=== PATIENT | female | born 1995 | race Hispanic/Latino ===

== ENCOUNTER 2017-12-16 23:23 | Emergency (ER) | payer SELFPAY ==
[2017-12-17 00:20] LABS: APPEARANCE,URINE Turbid (CLEAR); BILIRUBIN,URINE Negative (NEGATIVE); COLOR,URINE Yellow (YELLOW); GLUCOSE, URINE (UA) Negative (NEGATIVE); KETONES,URINE Negative (NEGATIVE); LEUKOCYTE ESTERASE ,URINE Large (NEGATIVE); NITRATE,URINE Positive (NEGATIVE); OCCULT BLOOD,URINE Negative (NEGATIVE); PROTEIN,URINE Negative (NEGATIVE)
[2017-12-17 00:24] LABS: HCG,QUAL RESULT NEGATIVE (NEGATIVE)
[2017-12-17 00:32] LABS: BACTERIA,URINE Many /HPF (None Seen); WBC,URINE 26-50 /HPF (0-1)
[2017-12-17 00:33] LABS: AMORPHOUS SEDIMENT,UR Many /LPF (None Seen); MUCUS,URINE Many LPF (None Seen); RENAL EPITHELIAL CELLS,URINE Moderate /LPF (None Seen); SQUAMOUS EPITHELIAL CELL,UR Many /LPF (0-2)
[2017-12-17] MEDS ORDERED: CEFTRIAXONE SODIUM 1 GM ONE (00:50)
[2017-12-17] MEDS ORDERED: LIDOCAINE HCL-MPF 1% 2ML VIAL ONE (00:50)
[2017-12-17] MEDS ORDERED: PHENAZOPYRIDINE HCL 200 MG TABLET ONE (00:51)
== END 2017-12-17 01:52 | disposition home or self-care (01) ==
LOC: EDH 23:23
DX: N30.00 Acute cystitis without hematuria (principal)
CPT/HCPCS: 81001; 81025; 96372; 99284; J0696; J3490

== ENCOUNTER 2018-01-31 17:46 | Emergency (ER) | payer OTHER | END 2018-01-31 20:25 | disposition home or self-care (01) | LOC: EDH 17:46 | DX: M54.2 Cervicalgia (principal); V49.59XA Passenger injured in collision with other motor vehicles in traffic accident, initial encounter; Y93.89 Activity, other specified; Y92.89 Other specified places as the place of occurrence of the external cause; Y99.8 Other external cause status | CPT/HCPCS: 72040 ==

== ENCOUNTER 2018-03-19 03:32 | Emergency (ER) | payer SELFPAY | END 2018-03-19 04:04 | disposition home or self-care (01) | LOC: EDH 03:32 | DX: J02.9 Acute pharyngitis, unspecified (principal); H92.02 Otalgia, left ear ==

== ENCOUNTER 2018-07-24 15:35 | Emergency (ER) | payer OTHER ==
[2018-07-24 16:30] LABS: APPEARANCE,URINE Cloudy (CLEAR); BILIRUBIN,URINE Negative (NEGATIVE); COLOR,URINE Yellow (YELLOW); GLUCOSE, URINE (UA) Negative (NEGATIVE); HCG,QUAL RESULT NEGATIVE (NEGATIVE); KETONES,URINE Negative (NEGATIVE); LEUKOCYTE ESTERASE ,URINE Small (NEGATIVE); NITRATE,URINE Negative (NEGATIVE); OCCULT BLOOD,URINE Negative (NEGATIVE); PH,URINE 5.5 (5.0-8.0); PROTEIN,URINE Negative (NEGATIVE); UROBILINOGEN,URINE 0.2 mg/dL (0.2-1.0)
[2018-07-24 16:44] LABS: BACTERIA,URINE Few /HPF (None Seen); MUCUS,URINE Few LPF (None Seen); RBC,URINE None Seen /HPF (0-1); TRANSITIONAL EPI CELLS,URINE Few /HPF (None Seen)
== END 2018-07-24 17:12 | disposition home or self-care (01) ==
LOC: EDH 15:35
DX: N39.0 Urinary tract infection, site not specified (principal)
CPT/HCPCS: 81001; 81025

== ENCOUNTER 2018-10-06 01:48 | Emergency (ER) | payer OTHER ==
[2018-10-06] MEDS ORDERED: ONDANSETRON ODT 4 MG TAB ONE (02:21)
== END 2018-10-06 03:01 | disposition home or self-care (01) ==
LOC: EDH 01:48
DX: J06.9 Acute upper respiratory infection, unspecified (principal); B97.89 Other viral agents as the cause of diseases classified elsewhere; H92.09 Otalgia, unspecified ear; F41.9 Anxiety disorder, unspecified
CPT/HCPCS: 81025

== ENCOUNTER 2018-12-12 10:15 | Emergency (ER) | payer OTHER | END 2018-12-12 10:51 | disposition home or self-care (01) | LOC: EDH 10:15 | DX: J06.9 Acute upper respiratory infection, unspecified (principal); F41.9 Anxiety disorder, unspecified | CPT/HCPCS: 99281 ==